=== PATIENT | female | born 1990 | race Hispanic/Latino ===

== ENCOUNTER 2020-09-15 06:03 | Day surgery (SDC) | payer BC ==
[2020-09-14 17:07] LABS: BASOPHILS % (AUTO) 0.4 % (0.0-5.0); EOSINOPHILS % (AUTO) 1.8 % (0.0-8.0); HEMATOCRIT 28.2 % (36-48); LYMPHOCYTES % (AUTO) 30.8 % (21.0-51.0); MEAN CORPUSCULAR HEMOGLOBIN 23.2 pg (27.0-33.0); MEAN CORPUSCULAR HGB CONC 30.5 g/dL (32.0-36.0); MONOCYTES % (AUTO) 5.5 % (3.0-13.0); NEUTROPHILS % (AUTO) 61.4 % (40.0-77.0); PLATELET COUNT (AUTO) 325 K/uL (130-400); RED BLOOD CELL COUNT(AUTO) 3.71 MIL/uL (4.00-5.50); RED CELL DISTRIBUTION WIDTH 15.4 % (11.0-15.5); WHITE BLOOD COUNT (AUTO) 7.8 K/uL (4.8-10.8)
[2020-09-14 18:12] VITALS: BP 132/76
[~2020-09-15] VITALS: Ht 170.2 cm; Wt 121.3 kg
[2020-09-15] VITALS (19 sets, daily range): BP systolic 106–135; BP diastolic 67–80
[~2020-09-15 06:03] MED LIST: MULT-1367 PO
[2020-09-15] MEDS ORDERED: LIDOCAINE PF 2% 5ML ABBOJECT ONE ×2 (07:08→07:09)
[2020-09-15] MEDS ORDERED: ONDANSETRON HCL 4 MG/2 ML VIAL ONE (07:08)
[2020-09-15] MEDS ORDERED: DEXAMETHASONE SOD PHOSPHATE 10MG/ML 1ML VIAL ONE (07:08)
[2020-09-15] MEDS ORDERED: SUCCINYLCHOLINE 200MG/10ML SYR ONE ×2 (07:08→07:09)
[2020-09-15] MEDS ORDERED: PROPOFOL 10 MG/ML 20ML VIAL IV ONE ×2 (07:08→07:43)
[2020-09-15] MEDS ORDERED: MIDAZOLAM HCL 1 MG/ML 2ML VIAL ONE (07:08)
[2020-09-15] MEDS ORDERED: NEOSTIGMINE 5MG/5ML SYR IV ONE (07:08)
[2020-09-15] MEDS ORDERED: GLYCOPYRROLATE 1 MG/5 ML SYRINGE ONE (07:08)
[2020-09-15] MEDS ORDERED: ROCURONIUM 10MG/1ML SYR 10 MG/ML ML ONE (07:09)
[2020-09-15] MEDS ORDERED: FENTANYL CITRATE PF 50 MCG/1 ML 2ML VIAL ONE ×2 (07:09→07:41)
[2020-09-15] MEDS ORDERED: VASOPRESSIN 20 UNITS/ML 1ML VIAL ONE (07:19)
[2020-09-15] MEDS ORDERED: STRONG IODINE SOLN 14ML BOTTLE ONE (07:19)
[2020-09-15] MEDS: LACTATED RINGERS 1000ML 1,000 ML IV SCH ×2 (07:24→08:05)
== END 2020-09-15 10:40 | disposition home or self-care (01) ==
LOC: DAH 06:03
PROVIDERS: ATTEND Specialist
DX: N92.0 Excessive and frequent menstruation with regular cycle (principal); Z20.822 Contact with and (suspected) exposure to COVID-19; D64.9 Anemia, unspecified; E66.9 Obesity, unspecified; Z98.890 Other specified postprocedural states
CPT/HCPCS: 36415; 58120; 84703; 85025; 86850; 86900; 86901; 87426; A4215; A4221; A4222; A4223; A4335; A4351; A4510; A4600; A4663; A6260; J0330 ×2; J1100; J2001 ×2; J2250; J2405; J2704; J2710; J3010 ×2; J3490; J7120 ×2

== ENCOUNTER 2021-01-28 11:44 | Observation (INO) | payer BC ==
[2021-01-28] VITALS (9 sets, daily range): BP systolic 117–137; BP diastolic 52–90
[~2021-01-28] VITALS: Ht 170.2 cm; Wt 108.9 kg
[2021-01-28 12:24] LABS: BASOPHILS % (AUTO) 0.6 % (0.0-5.0); EOSINOPHILS % (AUTO) 2.2 % (0.0-8.0); LYMPHOCYTES % (AUTO) 24.9 % (21.0-51.0); MEAN CORPUSCULAR HEMOGLOBIN 16.5 pg (27.0-33.0); MEAN CORPUSCULAR HGB CONC 26.8 g/dL (32.0-36.0); MEAN CORPUSCULAR VOLUME 61.4 fL (79-99); MONOCYTES % (AUTO) 7.7 % (3.0-13.0); NEUTROPHILS % (AUTO) 64.1 % (40.0-77.0); PLATELET COUNT (AUTO) 402 K/uL (130-400); RED BLOOD CELL COUNT(AUTO) 3.34 MIL/uL (4.00-5.50); RED CELL DISTRIBUTION WIDTH 17.4 % (11.0-15.5); WHITE BLOOD COUNT (AUTO) 8.1 K/uL (4.8-10.8)
[2021-01-28 12:30] LABS: CREATININE 0.7 mg/dL (0.5-1.5); POTASSIUM 3.7 mmol/L (3.5-5.1)
[2021-01-28] MEDS ORDERED: 0.9%NACL 1000ML 1,000 ML IV ONE (12:30)
[2021-01-28 12:32] LABS: HEMATOCRIT 20.5 % (36-48)
[2021-01-28 12:35] LABS: ALBUMIN 3.3 g/dL (3.5-5.0); BILIRUBIN,TOTAL 0.6 mg/dL (0.2-1.0); TOTAL PROTEIN, SERUM 7.7 g/dL (6.0-8.3)
[2021-01-28 13:11] LABS: APPEARANCE,URINE Clear (CLEAR); BILIRUBIN,URINE Negative (NEGATIVE); COLOR,URINE Yellow (YELLOW); GLUCOSE, URINE (UA) Negative (NEGATIVE); KETONES,URINE Trace mg/dL (NEGATIVE); LEUKOCYTE ESTERASE ,URINE Trace (NEGATIVE); NITRATE,URINE Negative (NEGATIVE); OCCULT BLOOD,URINE Small (NEGATIVE); PROTEIN,URINE Negative (NEGATIVE)
[2021-01-28 13:15] LABS: HCG,QUAL RESULT NEGATIVE (NEGATIVE)
[2021-01-28 13:32] LABS: BACTERIA,URINE Few /HPF (None Seen); MUCUS,URINE Few LPF (None Seen); RBC,URINE 0-1 /HPF (0-1); WBC,URINE 0-1 /HPF (0-1)
[2021-01-28 13:43] LABS: PROTHROMBIN TIME 10.9 SEC (9.6-11.6)
[2021-01-28 13:44] LABS: PARTIAL THROMBOPLASTIN TIME 23.4 SEC (26.3-35.5)
[2021-01-29 03:17] VITALS: BP 124/77
[2021-01-29] MEDS ORDERED: ACETAMINOPHEN 325 MG TAB PO ONE (03:30)
[2021-01-29] MEDS ORDERED: IBUPROFEN 800 MG TAB PO PRN (03:30)
[2021-01-29 05:51] LABS: HEMATOCRIT 23.2 % (36-48); MEAN CORPUSCULAR HEMOGLOBIN 19.8 pg (27.0-33.0); MEAN CORPUSCULAR HGB CONC 29.7 g/dL (32.0-36.0); MEAN CORPUSCULAR VOLUME 66.5 fL (79-99); RED BLOOD CELL COUNT(AUTO) 3.49 MIL/uL (4.00-5.50); RED CELL DISTRIBUTION WIDTH 22.5 % (11.0-15.5); WHITE BLOOD COUNT (AUTO) 6.4 K/uL (4.8-10.8)
[2021-01-29 07:14] VITALS: BP 112/82
[2021-01-29 11:15] VITALS: BP 106/72
[2021-01-29 16:40] LABS: HEMATOCRIT 29.7 % (36-48)
[2021-01-29 17:04] VITALS: BP 127/75
== END 2021-01-29 19:05 | disposition home or self-care (01) ==
LOC: EDH 11:44 → EDHIP 14:26 → WSH 17:15
PROVIDERS: ADMIT Specialist; ATTEND Specialist
DX: D64.9 Anemia, unspecified (principal); E66.9 Obesity, unspecified; N92.0 Excessive and frequent menstruation with regular cycle; N93.8 Other specified abnormal uterine and vaginal bleeding; I95.1 Orthostatic hypotension; D25.9 Leiomyoma of uterus, unspecified; K80.20 Calculus of gallbladder without cholecystitis without obstruction; T83.32XA Displacement of intrauterine contraceptive device, initial encounter; R93.89 Abnormal findings on diagnostic imaging of other specified body structures; Z98.84 Bariatric surgery status; Z79.899 Other long term (current) drug therapy; Z98.890 Other specified postprocedural states; Z68.37 Body mass index [BMI] 37.0-37.9, adult
CPT/HCPCS: 36415 ×2; 36430 ×2; 74176; 76830; 80053; 81001; 81025; 85014; 85018; 85025; 85027; 85610; 85730; 86850; 86900; 86901; 86923 ×3; 96360; 99285; G0378 ×20; J7030; P9016 ×3; 96361